=== PATIENT | female | born 1945 | race Caucasian/White ===

== ENCOUNTER → 2016-09-15 09:30 | Outpatient (CLI) | payer MEDICARE, OTHER ==
[2015-05-15 06:31] VITALS: BMI 25.1
[~2016-09-15 09:30] MED LIST: CELEXA20 MG PO; COREG6.25 MG PO; HYZAAR 50-12.51 TAB PO; LOPRESSOR HCT 11 TAB PO; NORVASC5 MG PO; POTASSIUM99 M1 PO; PROZAC40 MG PO
== END | disposition home or self-care (01) ==
LOC: D.CT 09:30
DX: R06.00 Dyspnea, unspecified (principal)

== ENCOUNTER → 2016-12-06 11:57 | Outpatient (CLI) | payer MEDICARE, OTHER ==
[2015-05-15 06:31] VITALS: BMI 25.1
[~2016-12-06 11:57] MED LIST changes: +EFFEXOR XR75 MG PO; +HYZAAR 100-25 T1 TAB PO; +K-TAB10 MEQ PO
== END | disposition home or self-care (01) ==
LOC: D.LAB 11:57
DX: R19.5 Other fecal abnormalities (principal)

== ENCOUNTER 2016-12-20 08:40 | Day surgery (SDC) | payer MEDICARE, OTHER ==
[~2016-12-20] VITALS: Ht 170.2 cm; Wt 70.5 kg
--- NOTE | ~2016-12-20 | OP ---
PATIENT NAME: HENNA LAM MEDICAL RECORD: [id number] :45 LOCATION:D.OPS ADMISSION DATE: SURGEON: JESSICA THAKKAR MD DATE OF OPERATION: 12/20/2016 PREOPERATIVE DIAGNOSES: 1. Rapid transit time. 2. Fecal occult blood positivity. 3. Chronic diarrhea. POSTOPERATIVE DIAGNOSES: 1. Rapid transit time. 2. Fecal occult blood positivity. 3. Chronic diarrhea. 4. No evidence of colitis or proctitis. 5. No polyps or masses. PROCEDURES: 1. Total colonoscopy to cecum. 2. Random colon and rectal biopsies. 3. Stool cultures. SURGEON: Jessica Thakkar MD STRIPPING CUTTER AND WINDER: None. BLOOD LOSS: Minimal. ANESTHESIA: IV sedation. COMPLICATIONS: None. The reason for the anesthesia staff being present during the procedure includes hypertension as well as anxiety. ENDOSCOPIC COURSE: The patient was conveyed to endoscopy suite electively on 12/20/2016. IV sedation was induced by anesthesia staff. The patient was placed in the Dwyer position. A digital rectal examination was performed. A colonoscope was inserted through the anus. It was easily advanced to the cecum. The prep was excellent. I slowly withdrew the endoscope. A combination of direct imaging and narrow band imaging was utilized. Random colon and rectal biopsies were obtained. These were cold biopsies. Stool cultures were obtained. I dragged the folds. The pullback was greater than a 14-minute pullback. A retroflexed views was obtained in the rectum. I then unretroflexed the scope and removed it under direct vision. I will see the patient in my office in 2-3 weeks. We will review the results of the biopsies at that time. TRANSINT:[id number] Voice Confirmation ID: [id number] DOCUMENT ID: [id number] OPERATIVE REPORT [id number] HENNA LAM JESSICA THAKKAR MD CC: ELIA CLEMENS MD and JAMES ORNELAS MD [phone] DICTATION DATE: 12/20/166 INSTRUCTOR BRIDGE: 12/20/16 180 [facility] 12/20/[address] [address]
--- NOTE | ~2016-12-20 | HP ---
PATIENT: HENNA LAM MEDICAL RECORD: [id number] ACCOUNT: [id number] LOCATION:RUBY : 45 ADMISSION DATE: 12/20/16 HISTORY AND PHYSICAL EXAMINATION CHIEF COMPLAINT: Blood in the stools. HISTORY OF PRESENT ILLNESS: The patient has fecal occult blood in her stools. Also, has chronic diarrhea. Also, has a quick transit time. I am going to plan for colonoscopy as well as random colon and rectal biopsies and stool cultures. The risks, possible complications and alternatives to procedure were explained to the patient. She elects to proceed. She has noted no blood in her stools. She does have lower abdominal pain, which is rather diffuse. She has mild tenderness in the lower abdomen and this is diffuse as well. She has a lower midline scar. I specifically discussed with her the risk of endoscopic perforation. ALLERGIES: No known drug allergies. PHYSICAL EXAMINATION: GENERAL: The patient does not appear acutely ill. She does not appear chronically ill. The entire physical examination was performed in the presence of a female nurse. HEAD: External ears appear normal. EYES: Extraocular movements are intact. NECK: Trachea is midline. CHEST: No intercostal retractions. PULMONARY: Nonlabored, no stridor. ABDOMEN: No peritonitis with movement. EXTREMITIES: No peripheral cyanosis. INTEGUMENT: No rash, no ulcerations. PSYCHIATRIC: Normal affect. NEUROLOGIC: Nonfocal, no lethargy. The patient answers questions appropriately, moves all extremities well. BACK: No thoracic kyphosis. LYMPHATICS: No lymphangitic streaking of the exposed extremities. PAST MEDICAL AND SURGICAL HISTORY: Hypertension, TIAs, gastroesophageal reflux. SOCIAL HISTORY: Nonsmoker. REVIEW OF SYSTEMS: Negative for diabetes or thyroid problems. Negative for renal disease or hepatitis. Negative for myocardial infarction. IMPRESSION: 1. Chronic diarrhea. 2. Quick transit time. 3. Fecal occult blood positivity. PLAN: Colonoscopy, random colon and rectal biopsies and stool cultures. TRANSINT:[id number] Voice Confirmation ID: [id number] DOCUMENT ID: [id number] HISTORY AND PHYSICAL [id number] HENNA LAM ROBERT MD CC: ELIA CLEMENS MD [phone] DICTATION DATE: 12/20/16 1032 HEEL FINISHER: 12/20/16 [address] [place] [address]
[~2016-12-20 08:40] MED LIST changes: -EFFEXOR XR75 MG PO; -HYZAAR 100-25 T1 TAB PO; -K-TAB10 MEQ PO
[2016-12-20 09:34] LABS: HEMATOCRIT 42.2 % (36.0-48.0); HEMOGLOBIN 14.6 g/dL (12-16); MCH 29.1 pg (26.0-34.0); MCHC 34.6 g/dL (31.0-37.0); MCV 84.1 fL (80.0-100.0); MEAN PLATELET VOLUME 9.8 fL (7.4-10.4); RBC 5.02 10x6/uL (4.00-5.40); RDW 13.1 % (11.5-14.5); WBC 4.3 10x3/uL (4.8-10.8)
[2016-12-20] MEDS ORDERED: HYZAAR 100-25 T1 TAB PO (09:47)
[2016-12-20] MEDS ORDERED: EFFEXOR XR75 MG PO (09:47)
[2016-12-20] MEDS ORDERED: K-TAB10 MEQ PO (09:49)
[2016-12-20 09:57] VITALS: BP 117/80; Ht 170.2 cm; Wt 70.5 kg
--- NOTE | 2016-12-20 12:20 | NUR ---
1125- VOIDED WITHOUT DIFFICULTY 1130- TOLERATED FULL LIQUIDS 1200- IV D/C'D, PT TOLERATED. CATHETER INTACT 1215- DISCHARGE INSTRUCTIONS COMPLETED, PT VERBALIZED UNDERSTANDING. PAPERWORK SIGNED. 1220- PT DISCHARGED VIA WHEELCHAIR WITH .
== END 2016-12-20 12:20 | disposition home or self-care (01) ==
LOC: D.OPS 08:40
PROVIDERS: Anesthesiology; Surgery
DX: R10.9 Unspecified abdominal pain (principal); K52.9 Noninfective gastroenteritis and colitis, unspecified; I10 Essential (primary) hypertension; K21.9 Gastro-esophageal reflux disease without esophagitis

== ENCOUNTER → 2017-03-23 07:19 | Outpatient (CLI) | payer MEDICARE, OTHER ==
[2016-12-20 09:57] VITALS: BMI 24.3
[~2017-03-23 07:19] MED LIST changes: +EFFEXOR XR75 MG PO; +HYZAAR 100-25 T1 TAB PO; +K-TAB10 MEQ PO
== END | disposition home or self-care (01) ==
LOC: D.RT 07:19
DX: D86.0 Sarcoidosis of lung (principal)

== ENCOUNTER → 2017-04-03 14:36 | Outpatient (CLI) | payer MEDICARE, OTHER ==
[2016-12-20 09:57] VITALS: BMI 24.3
== END | disposition home or self-care (01) ==
LOC: D.MRI 14:36
DX: R51 Headache (principal)

== ENCOUNTER → 2017-06-27 09:39 | Outpatient (CLI) | payer MEDICARE, OTHER ==
[2016-12-20 09:57] VITALS: BMI 24.3
== END | disposition home or self-care (01) ==
LOC: D.RT 09:39
DX: D86.0 Sarcoidosis of lung (principal); R59.0 Localized enlarged lymph nodes

== ENCOUNTER → 2017-10-06 13:26 | Outpatient (CLI) | payer MEDICARE, OTHER ==
[2016-12-20 09:57] VITALS: BMI 24.3
== END | disposition home or self-care (01) ==
LOC: D.CT 10-05 16:00
DX: R41.3 Other amnesia (principal); I77.9 Disorder of arteries and arterioles, unspecified; I63.50 Cerebral infarction due to unspecified occlusion or stenosis of unspecified cerebral artery

== ENCOUNTER → 2017-11-21 12:13 | Outpatient (CLI) | payer MEDICARE, OTHER ==
[2016-12-20 09:57] VITALS: BMI 24.3
== END | disposition home or self-care (01) ==
LOC: D.RAD 12:13
DX: J32.9 Chronic sinusitis, unspecified (principal)

== ENCOUNTER 2018-05-11 11:11 | Emergency (ER) | payer MEDICARE, OTHER ==
[~2018-05-11] VITALS: Ht 170.2 cm; Wt 72.7 kg
[2018-05-11 11:13] VITALS: BP 146/89; Ht 170.2 cm; Wt 72.7 kg
[2018-05-11] MEDS ORDERED: OMEPRAZOLE20 M1 PO (11:16)
[2018-05-11 11:43] LABS: BASOPHILS 0.2 % (0-2); EOSINOPHILS 0.5 % (0-7); HEMATOCRIT 40.5 % (36.0-48.0); HEMOGLOBIN 13.8 g/dL (12-16); IMMATURE GRANULOCYTES 0.2 % (0-5); LYMPHOCYTES 11.2 % (15-50); MCH 29.1 pg (26.0-34.0); MCHC 34.1 g/dL (31.0-37.0); MCV 85.4 fL (80.0-100.0); MEAN PLATELET VOLUME 10.5 fL (7.4-10.4); MONOCYTES 4.4 % (2-11); NEUTROPHILS 83.5 % (40-80); PLATELET COUNT 226 10x3/uL (130-400); RBC 4.74 10x6/uL (4.00-5.40); RDW 13.4 % (11.5-14.5); WBC 5.6 10x3/uL (4.8-10.8)
[2018-05-11 11:59] LABS: APPEARANCE CLOUDY (CLEAR); BILIRUBIN NEGATIVE (NEGATIVE); COLOR DK YELLOW (YELLOW); GLUCOSE NEGATIVE (NEGATIVE); KETONE NEGATIVE (NEGATIVE); NITRITE NEGATIVE (NEGATIVE); PROTEIN 1+ mg/dL (NEGATIVE); RED CELLS - URINE >50 /hpf (0-5); SPECIFIC GRAVITY 1.015 (1.005-1.020); UROBILINOGEN NORMAL (NORMAL); WHITE CELLS - URINE 0-5 /hpf (0-5)
[2018-05-11 12:00] LABS: INR 0.99 (0.85-1.17); PROTIME 12.7 SECONDS (11.6-15.0)
[2018-05-11 12:00] LABS: BACTERIA MODERATE /hpf (NONE SEEN); EPITHELIAL CELLS 0-5 /hpf (0-5); MUCUS <1+ /lpf (NONE SEEN)
[2018-05-11 12:06] LABS: ALBUMIN 4.2 g/dL (3.4-5.0); ALKALINE PHOSPHATASE 89 U/L (46-116); ALT (SGPT) 35 U/L (10-68); BILIRUBIN - TOTAL 0.63 mg/dL (0.2-1.3); CALC OSMOLALITY 278 mosm/kg (275-300); CALCIUM 8.8 mg/dL (8.5-10.1); CARBON DIOXIDE 23.2 mmol/L (21.0-32.0); CHLORIDE - SERUM 105 mmol/L (98-107); GLUCOSE 109 mg/dL (74-106); POTASSIUM - SERUM 3.7 mmol/L (3.5-5.1); PROTEIN - SERUM 7.5 g/dL (6.4-8.2); SODIUM 139 mmol/L (136-145); UREA NITROGEN 12 mg/dL (7-18); eGFR NON AFRICAN AMERICAN 58 mL/min (90-120)
[2018-05-11 12:17] LABS: CKMB 1.1 U/L (0.0-3.6); CREATINE KINASE 101 UL (21-215); PRO BNP 158 pg/mL (0-125); TROPONIN-I < 0.017 ng/mL (0.000-0.060)
== END 2018-05-11 12:53 | disposition home or self-care (01) ==
LOC: D.ER 11:11
PROVIDERS: Family Medicine
DX: H54.61 Unqualified visual loss, right eye, normal vision left eye (principal); R11.2 Nausea with vomiting, unspecified; Z86.73 Personal history of transient ischemic attack (TIA), and cerebral infarction without residual deficits; I10 Essential (primary) hypertension

== ENCOUNTER → 2018-05-17 10:43 | Outpatient (CLI) | payer MEDICARE, OTHER ==
[2018-05-11 11:13] VITALS: BMI 25.1
[~2018-05-17 10:43] MED LIST changes: +OMEPRAZOLE20 M1 PO
== END | disposition home or self-care (01) ==
LOC: D.MRI 10:43
DX: H53.461 Homonymous bilateral field defects, right side (principal)

== ENCOUNTER → 2018-05-31 08:38 | Outpatient (CLI) | payer MEDICARE, OTHER ==
[2018-05-11 11:13] VITALS: BMI 25.1
[2018-05-31 11:59] LABS: GLUCOSE - CSF 60 MG/DL (40-75); PROTEIN - CSF 48 MG/DL (12-60)
[2018-05-31 14:59] LABS: APPEARANCE - CSF COLORLESS; RBC - CSF 5 cmm (0-0)
[2018-05-31 15:00] LABS: LYMPH - CSF 72 % (40-80); MONO - CSF 16 % (15-45); NEUT - CSF 12 % (0-6)
== END | disposition home or self-care (01) ==
LOC: D.RAD 08:38
PROVIDERS: Internal Medicine Medical Oncology
DX: C79.31 Secondary malignant neoplasm of brain (principal)

== ENCOUNTER → 2018-06-04 08:56 | Outpatient (CLI) | payer MEDICARE, OTHER ==
[2018-05-11 11:13] VITALS: BMI 25.1
== END | disposition home or self-care (01) ==
LOC: D.CT 08:56
DX: C79.31 Secondary malignant neoplasm of brain (principal)

== ENCOUNTER → 2018-06-18 14:03 | Outpatient (CLI) | payer MEDICARE, OTHER ==
[2018-05-11 11:13] VITALS: BMI 25.1
[~2018-06-18 14:03] MED LIST changes: +DECADRON4 MG PO; +DIFLUCAN100 MG PO; +Nystatin Oral Susp [ PO; +PEPCID PO
== END | disposition home or self-care (01) ==
LOC: D.MRI 14:03
DX: C71.9 Malignant neoplasm of brain, unspecified (principal)

== ENCOUNTER 2018-07-04 16:36 | Inpatient (IN) | payer MEDICARE, OTHER ==
[~2018-07-04] VITALS: Ht 170.2 cm; Wt 69.9 kg
--- NOTE | ~2018-07-04 | MORECARE ---
CASE MANAGEMENT DISCHARGE SUMMARY PATIENT: HENNA LAM KAYLAH UNIT: [id number] ADM DATE: 07/04/18 AGE: 73 : 45 SEX: F ROOM/BED: D.220 AUTHOR: ABIDA PUCKETT PHYSICIAN: REFERRING PHYSICIAN: FOX ZAFAR MD DATE OF SERVICE: 07/06/18 Discharge Plan Patient Name: HENNA LAM Facility: [facility]:[place] : 1945 Planned Disposition: Home Anticipated Discharge Date: Discharge Date: Expected LOS: Initial Reviewer: [email or web address] Initial Review Date: 07/04/2018 Generated: 07/06/18 12:58 pm Comments DCP- Discharge Planning Updated by [email or web address]: Karolina Rivera on 07/06/18 10:[address] Patient Name: HENNA LAM Encounter No: [id number] : 1945 Primary Insurance: MEDICARE A & B Anticipated DC Date: Planned Disposition: Home External Planned Provider: : DCP follow-up note: Patient and family in agreement with discharge plan. No changes to plan. CM did order a walker from [facility], they will deliver to the hospital. Case management will follow and assist as needed. Karolina Rivera DCP- Discharge Planning Updated by [email or web address]: Karolina Rivera on 07/05/18 3:[address] Patient Name: HENNA LAM Admission Status: ER Accout number: [id number] Admission Date: 07-04-2018 : 1945 Admission Diagnosis: Attending: FOX ZAFAR Current LOS: 1 Anticipated DC Date: Planned Disposition: Home Primary Insurance: MEDICARE A & B Discharge Planning Comments: CM met with patient to assess discharge planning needs. Patient lives independently with her where she plans to return at discharge. She does not use any DME, but is asking for a walker at discharge. She states that she is independent with her care and does not want home health. CM will continue to follow and assist with DC planning. Chemical Operations [employer] Training: Karolina Rivera DCPIA - Discharge Planning Initial Assessment Updated by [email or web address]: Karolina Rivera on 07/05/18 4:28 pm * Is the patient Alert and Oriented? Yes * How many steps to enter\exit or inside your home? * PCP CLEMENS * Pharmacy [facility] * Preadmission Environment Home with Family * ADLs Independent * Equipment None * List name and contact numbers for known caregivers / representatives who currently or will assist patient after discharge: ANTONELLA () [phone] * Verbal permission to speak to the caregivers and representatives has been obtained from the patient. Yes * Community resources currently utilized None * Additional services required to return to the preadmission environment? No * Can the patient safely return to the preadmission environment? Yes * Has this patient been hospitalized within the prior 30 days at any hospital? No Last DP export: 07/06/18 10:50 Patient Name: HENNA LAM Page [id number] at 1158 All edits/amendments must be made on the electronic document DICTATION DATE: 07/06/181157 BLOOD OR BLOOD BANK TECHNICIAN: DEMETRA 07/06/181157 RPT#: [id number] DC DATE: STATUS: ADM IN [facility] [address] [place] [address] END OF REPORT
--- NOTE | ~2018-07-04 | MORECARE ---
CASE MANAGEMENT DISCHARGE SUMMARY PATIENT: HENNA LAM KAYLAH UNIT: [id number] ADM DATE: 07/04/18 AGE: 73 : 45 SEX: F ROOM/BED: D.2200 AUTHOR: ABIDA PUCKETT PHYSICIAN: REFERRING PHYSICIAN: FOX ZAFAR MD DATE OF SERVICE: 07/09/18 Discharge Plan Patient Name: HENNA LAM Facility: [facility]:[place] : 1945 Planned Disposition: Home Anticipated Discharge Date: Discharge Date: 07/06/2018 Expected LOS: 0 Initial Reviewer: [email or web address] Initial Review Date: 07/04/2018 Generated: 07/09/18 11:15 am Comments DCP- Discharge Planning Updated by [email or web address]: Karolina Rivera on 07/06/18 10:[address] Patient Name: HENNA LAM Encounter No: [id number] : 1945 Primary Insurance: MEDICARE A & B Anticipated DC Date: Planned Disposition: Home External Planned Provider: : DCP follow-up note: Patient and family in agreement with discharge plan. No changes to plan. CM did order a walker from [facility], they will deliver to the hospital. Case management will follow and assist as needed. Karolina Rivera DCP- Discharge Planning Updated by [email or web address]: Karolina Rivera on 07/05/18 3:[address] Patient Name: HENNA LAM Admission Status: ER Accout number: [id number] Admission Date: 07-04-2018 : 1945 Admission Diagnosis: Attending: FOX ZAFAR Current LOS: 1 Anticipated DC Date: Planned Disposition: Home Primary Insurance: MEDICARE A & B Discharge Planning Comments: CM met with patient to assess discharge planning needs. Patient lives independently with her where she plans to return at discharge. She does not use any DME, but is asking for a walker at discharge. She states that she is independent with her care and does not want home health. CM will continue to follow and assist with DC planning. Maintainer Plant: Karolina Rivera DCPIA - Discharge Planning Initial Assessment Updated by [email or web address]: Karolina Rivera on 07/05/18 4:28 pm * Is the patient Alert and Oriented? Yes * How many steps to enter\exit or inside your home? * PCP CLEMENS * Pharmacy [facility] [address] * Preadmission Environment Home with Family * ADLs Independent * Equipment None * List name and contact numbers for known caregivers / representatives who currently or will assist patient after discharge: ANTONELLA () [phone] * Verbal permission to speak to the caregivers and representatives has been obtained from the patient. Yes * Community resources currently utilized None * Additional services required to return to the preadmission environment? No * Can the patient safely return to the preadmission environment? Yes * Has this patient been hospitalized within the prior 30 days at any hospital? No Last DP export: 07/06/18 10:58 Patient Name: HENNA LAM Page 05959 at 1015 All edits/amendments must be made on the electronic document DICTATION DATE: 07/09/18 1014 VIDEO NETWORK ENGINEER: DEMETRA 07/09/18 1014 RPT#: [id number] DC DATE:07/06/18 STATUS: DIS IN [facility] [address] [place] [address] END OF REPORT
--- NOTE | ~2018-07-04 | MORECARE ---
CASE MANAGEMENT DISCHARGE SUMMARY PATIENT: HENNA LAM KAYLAH UNIT: [id number] ADM DATE: 07/04/18 AGE: 73 : 45 SEX: F ROOM/BED: D.2204 AUTHOR: LAVERNDOC PHYSICIAN: REFERRING PHYSICIAN: FOX ZAFAR MD DATE OF SERVICE: 07/05/18 Discharge Plan Patient Name: HENNA LAM Facility: [facility]:[place] : 1945 Planned Disposition: Home Anticipated Discharge Date: Discharge Date: Expected LOS: Initial Reviewer: [email or web address] Initial Review Date: 07/04/2018 Generated: 07/05/18 5:30 pm Comments DCP- Discharge Planning Updated by [email or web address]: Karolina Rivera on 07/05/18 3:[address] Patient Name: HENNA LAM Admission Status: ER Accout number: [id number] Admission Date: 07-04-2018 : 1945 Admission Diagnosis: Attending: FOX ZAFAR Current LOS: 1 Anticipated DC Date: Planned Disposition: Home Primary Insurance: MEDICARE A & B Discharge Planning Comments: CM met with patient to assess discharge planning needs. Patient lives independently with her where she plans to return at discharge. She does not use any DME, but is asking for a walker at discharge. She states that she is independent with her care and does not want home health. CM will continue to follow and assist with DC planning. Tanker Driver: Karolina Rivera DCPIA - Discharge Planning Initial Assessment Updated by [email or web address]: Karolina Rivera on 07/05/18 4:28 pm * Is the patient Alert and Oriented? Yes * How many steps to enter\exit or inside your home? * PCP CLEMENS * Pharmacy [facility] [address] * Preadmission Environment Home with Family * ADLs Independent * Equipment None * List name and contact numbers for known caregivers / representatives who currently or will assist patient after discharge: ANTONELLA () [phone] * Verbal permission to speak to the caregivers and representatives has been obtained from the patient. Yes * Community resources currently utilized None * Additional services required to return to the preadmission environment? No * Can the patient safely return to the preadmission environment? Yes * Has this patient been hospitalized within the prior 30 days at any hospital? No Patient Name: HENNA LAM Page 73575 at 1631 All edits/amendments must be made on the electronic document DICTATION DATE: 07/05/181629 GLOBAL MARKETING COORDINATOR: DEMETRA 07/05/181629 RPT#: [id number] DC DATE: STATUS: ADM IN [facility] [address] [place] [address] END OF REPORT
--- NOTE | ~2018-07-04 | MORECARE ---
CASE MANAGEMENT DISCHARGE SUMMARY PATIENT: HENNA LAM KAYLAH UNIT: [id number] ADM DATE: 07/04/18 AGE: 73 : 45 SEX: F ROOM/BED: D.2203 AUTHOR: LAVERNDOC PHYSICIAN: REFERRING PHYSICIAN: FOX ZAFAR MD DATE OF SERVICE: 07/06/18 Discharge Plan Patient Name: HENNA LAM Facility: [facility]:[place] : 1945 Planned Disposition: Home Anticipated Discharge Date: Discharge Date: Expected LOS: Initial Reviewer: [email or web address] Initial Review Date: 07/04/2018 Generated: 07/06/18 12:50 pm Comments DCP- Discharge Planning Updated by [email or web address]: Karolina Rivera on 07/05/18 3:[address] Patient Name: HENNA LAM Admission Status: ER Accout number: [id number] Admission Date: 07-04-2018 : 1945 Admission Diagnosis: Attending: FOX ZAFAR Current LOS: 1 Anticipated DC Date: Planned Disposition: Home Primary Insurance: MEDICARE A & B Discharge Planning Comments: CM met with patient to assess discharge planning needs. Patient lives independently with her where she plans to return at discharge. She does not use any DME, but is asking for a walker at discharge. She states that she is independent with her care and does not want home health. CM will continue to follow and assist with DC planning. Armature Bander: Karolina Rivera DCPIA - Discharge Planning Initial Assessment Updated by [email or web address]: Karolina Rivera on 07/05/18 4:28 pm * Is the patient Alert and Oriented? Yes * How many steps to enter\exit or inside your home? * PCP CLEMENS * Pharmacy [facility] [address] * Preadmission Environment Home with Family * ADLs Independent * Equipment None * List name and contact numbers for known caregivers / representatives who currently or will assist patient after discharge: ANTONELLA () [phone] * Verbal permission to speak to the caregivers and representatives has been obtained from the patient. Yes * Community resources currently utilized None * Additional services required to return to the preadmission environment? No * Can the patient safely return to the preadmission environment? Yes * Has this patient been hospitalized within the prior 30 days at any hospital? No External Providers External Provider: [facility] Next Contact Date: Service Request Date: Service Type: Resolution: Reviewer: Comments: Last DP export: 07/05/18 3:30 Patient Name: HENNA LAM Page [phone] at 1150 All edits/amendments must be made on the electronic document DICTATION DATE: 07/06/18 115 MEDIA THEORIST AND AUTHOR OF: DEMETRA 07/06/18 1150 RPT#: [id number] DC DATE: STATUS: ADM IN [facility] [address] [place] [address] END OF REPORT
[~2018-07-04 16:36] MED LIST changes: -DECADRON4 MG PO; -DIFLUCAN100 MG PO; -Nystatin Oral Susp [ PO; -PEPCID PO
[2018-07-04] MEDS ORDERED: DECADRON4 MG PO (17:38)
[2018-07-04 18:49] LABS: BASOPHILS 0.2 % (0-2); EOSINOPHILS 0 % (0-7); HEMATOCRIT 41.8 % (36.0-48.0); HEMOGLOBIN 15.3 g/dL (12-16); IMMATURE GRANULOCYTES 2.2 % (0-5); LYMPHOCYTES 10.7 % (15-50); MCH 30.4 pg (26.0-34.0); MCHC 36.6 g/dL (31.0-37.0); MCV 83.1 fL (80.0-100.0); MEAN PLATELET VOLUME 10.2 fL (7.4-10.4); MONOCYTES 7.8 % (2-11); NEUTROPHILS 79.1 % (40-80); RBC 5.03 10x6/uL (4.00-5.40); WBC 5.8 10x3/uL (4.8-10.8)
[2018-07-04 18:51] LABS: PLATELET COUNT 121 10x3/uL (130-400)
[2018-07-04 19:19] LABS: ALBUMIN 3.3 g/dL (3.4-5.0); ANION GAP 15.6 mmol/L (8-16); BILIRUBIN - TOTAL 0.88 mg/dL (0.2-1.3); CALCIUM 8.7 mg/dL (8.5-10.1); CARBON DIOXIDE 24.8 mmol/L (21.0-32.0); CREATININE - SERUM 0.9 mg/dL (0.6-1.3); MAGNESIUM - SERUM 2.3 mg/dL (1.8-2.4); POTASSIUM - SERUM 4.4 mmol/L (3.5-5.1); PROTEIN - SERUM 6.6 g/dL (6.4-8.2)
[2018-07-04 20:49] VITALS: BP 164/87
[2018-07-05 03:22] VITALS: BP 164/87; BMI 24.1
[2018-07-05 03:36] VITALS: BP 131/69
[2018-07-05 05:56] LABS: BASOPHILS 0.2 % (0-2); EOSINOPHILS 0 % (0-7); HEMATOCRIT 38.7 % (36.0-48.0); HEMOGLOBIN 13.4 g/dL (12-16); IMMATURE GRANULOCYTES 1.2 % (0-5); LYMPHOCYTES 17.8 % (15-50); MCH 29.1 pg (26.0-34.0); MCHC 34.6 g/dL (31.0-37.0); MCV 83.9 fL (80.0-100.0); MEAN PLATELET VOLUME 9.8 fL (7.4-10.4); MONOCYTES 7.3 % (2-11); NEUTROPHILS 73.5 % (40-80); PLATELET COUNT 105 10x3/uL (130-400); RBC 4.61 10x6/uL (4.00-5.40); RDW 14.1 % (11.5-14.5); WBC 5.1 10x3/uL (4.8-10.8)
[2018-07-05 06:16] LABS: APTT 20.3 SECONDS (22.8-39.4); INR 0.99 (0.85-1.17); PROTIME 12.7 SECONDS (11.6-15.0)
[2018-07-05 06:29] LABS: ALBUMIN 2.8 g/dL (3.4-5.0); ANION GAP 15.4 mmol/L (8-16); BILIRUBIN - TOTAL 0.98 mg/dL (0.2-1.3); CALCIUM 8.1 mg/dL (8.5-10.1); CARBON DIOXIDE 20.8 mmol/L (21.0-32.0); CREATININE - SERUM 0.8 mg/dL (0.6-1.3); POTASSIUM - SERUM 3.2 mmol/L (3.5-5.1); PROTEIN - SERUM 5.6 g/dL (6.4-8.2)
[2018-07-05 08:49] VITALS: BP 121/79
[2018-07-05 12:34] VITALS: Ht 170.2 cm; Wt 69.9 kg
[2018-07-05 16:45] VITALS: BP 140/86
[2018-07-05 21:05] VITALS: BP 135/78
[2018-07-06 04:35] VITALS: BP 133/79
[2018-07-06 04:42] LABS: BASOPHILS 0.2 % (0-2); EOSINOPHILS 0 % (0-7); HEMOGLOBIN 14.4 g/dL (12-16); IMMATURE GRANULOCYTES 1.6 % (0-5); LYMPHOCYTES 8.7 % (15-50); MCH 29.1 pg (26.0-34.0); MCHC 34.3 g/dL (31.0-37.0); MCV 84.8 fL (80.0-100.0); MEAN PLATELET VOLUME 10.3 fL (7.4-10.4); MONOCYTES 3.7 % (2-11); NEUTROPHILS 85.8 % (40-80); PLATELET COUNT 103 10x3/uL (130-400); RBC 4.95 10x6/uL (4.00-5.40); RDW 14.1 % (11.5-14.5); WBC 5.2 10x3/uL (4.8-10.8)
[2018-07-06 04:50] LABS: ANION GAP 13.9 mmol/L (8-16); CREATININE - SERUM 0.9 mg/dL (0.6-1.3)
[2018-07-06 04:55] LABS: POTASSIUM - SERUM 3.9 mmol/L (3.5-5.1)
[2018-07-06 08:21] VITALS: BP 131/83
[2018-07-06] MEDS ORDERED: DIFLUCAN100 MG PO (11:35)
[2018-07-06] MEDS ORDERED: Nystatin Oral Susp [ PO ×2 (11:59→14:26)
[2018-07-06] MEDS ORDERED: PEPCID PO (12:01)
[2018-07-06 12:36] VITALS: BP 137/87
== END 2018-07-06 15:27 | disposition home or self-care (01) | DRG 392 ==
LOC: D.ER 16:36 → D.MS 19:14 → D.EDHOLD 19:14 → D.MS 19:50
PROVIDERS: Emergency Medicine; Internal Medicine Gastroenterology; Internal Medicine Nephrology
PROC: 0DB78ZX Excision of Stomach, Pylorus, Via Natural or Artificial Opening Endoscopic, Diagnostic (ICD-10-PCS; 2018-07-05)
PROC: 0DB38ZX Excision of Lower Esophagus, Via Natural or Artificial Opening Endoscopic, Diagnostic (ICD-10-PCS; principal; 2018-07-05 16:00)
DX: K22.2 Esophageal obstruction (principal); B37.81 Candidal esophagitis; R13.10 Dysphagia, unspecified; I10 Essential (primary) hypertension; D86.9 Sarcoidosis, unspecified; E87.6 Hypokalemia; D69.6 Thrombocytopenia, unspecified

== ENCOUNTER → 2018-07-09 08:40 | Outpatient (CLI) | payer MEDICARE, OTHER ==
[2018-07-05 12:34] VITALS: BMI 24.1
[~2018-07-09 08:40] MED LIST changes: +DECADRON4 MG PO; +DIFLUCAN100 MG PO; +Nystatin Oral Susp [ PO; +PEPCID PO
== END | disposition home or self-care (01) ==
LOC: D.MRI 08:40
DX: D86.9 Sarcoidosis, unspecified (principal)

== ENCOUNTER → 2018-08-27 09:07 | Outpatient (CLI) | payer MEDICARE, OTHER ==
[2018-07-05 12:34] VITALS: BMI 24.1
== END | disposition home or self-care (01) ==
LOC: D.MRI 09:07
DX: M25.561 Pain in right knee (principal)

== ENCOUNTER → 2018-08-28 07:31 | Outpatient (CLI) | payer MEDICARE, OTHER ==
[2018-07-05 12:34] VITALS: BMI 24.1
== END | disposition home or self-care (01) ==
LOC: D.RT 08-23 08:00
DX: D86.0 Sarcoidosis of lung (principal)

== ENCOUNTER → 2018-09-17 07:47 | Outpatient (CLI) | payer MEDICARE, OTHER ==
[2018-07-05 12:34] VITALS: BMI 24.1
== END | disposition home or self-care (01) ==
LOC: D.MRI 07:47
DX: D86.9 Sarcoidosis, unspecified (principal)

== ENCOUNTER → 2018-12-28 07:27 | Outpatient (CLI) | payer MEDICARE, OTHER ==
[2018-07-05 12:34] VITALS: BMI 24.1
[2018-12-28 08:42] LABS: ANION GAP 13.5 mmol/L (8-16); CALCIUM 8.9 mg/dL (8.5-10.1); CARBON DIOXIDE 27.7 mmol/L (21.0-32.0); POTASSIUM - SERUM 3.2 mmol/L (3.5-5.1)
== END | disposition home or self-care (01) ==
LOC: D.RT 07:27
PROVIDERS: ATTEND Internal Medicine Pulmonary Disease
DX: D86.9 Sarcoidosis, unspecified (principal)

== ENCOUNTER → 2019-06-17 08:05 | Outpatient (CLI) | payer MEDICARE, OTHER ==
[2018-07-05 12:34] VITALS: BMI 24.1
== END | disposition home or self-care (01) ==
LOC: D.CT 08:05 → D.RT 10:00
PROVIDERS: ATTEND Internal Medicine Pulmonary Disease
DX: D86.0 Sarcoidosis of lung (principal)

== ENCOUNTER → 2019-10-08 13:10 | Outpatient (CLI) | payer MEDICARE, OTHER ==
[2018-07-05 12:34] VITALS: BMI 24.1
== END | disposition home or self-care (01) ==
LOC: D.US 13:10
PROVIDERS: ATTEND Nurse Practitioner
DX: R94.6 Abnormal results of thyroid function studies (principal)

== ENCOUNTER → 2019-10-09 10:18 | Outpatient (CLI) | payer MEDICARE, OTHER ==
[2018-07-05 12:34] VITALS: BMI 24.1
== END | disposition home or self-care (01) ==
LOC: D.MRI 10:18
PROVIDERS: ATTEND Internal Medicine Medical Oncology
DX: C79.31 Secondary malignant neoplasm of brain (principal); D86.81 Sarcoid meningitis

== ENCOUNTER → 2020-01-28 13:07 | Outpatient (CLI) | payer MEDICARE, OTHER ==
[2018-07-05 12:34] VITALS: BMI 24.1
== END | disposition home or self-care (01) ==
LOC: D.LABREF 13:07
PROVIDERS: ATTEND Internal Medicine Pulmonary Disease
DX: Z11.59 Encounter for screening for other viral diseases (principal)

== ENCOUNTER → 2020-01-29 10:10 | Outpatient (CLI) | payer MEDICARE, OTHER ==
[2018-07-05 12:34] VITALS: BMI 24.1
== END | disposition home or self-care (01) ==
LOC: D.RT 12-19 10:00 → D.CT 12-19 10:30 → D.RT 10:10
PROVIDERS: ATTEND Internal Medicine Pulmonary Disease
DX: D86.0 Sarcoidosis of lung (principal)

== ENCOUNTER → 2021-02-17 13:40 | Outpatient (CLI) | payer MEDICARE, OTHER ==
[2018-07-05 12:34] VITALS: BMI 24.1
== END | disposition home or self-care (01) ==
LOC: D.LAB 13:40
PROVIDERS: ATTEND Internal Medicine Pulmonary Disease
DX: J45.909 Unspecified asthma, uncomplicated (principal)

== ENCOUNTER → 2021-02-22 13:28 | Outpatient (CLI) | payer MEDICARE, OTHER ==
[2018-07-05 12:34] VITALS: BMI 24.1
== END | disposition home or self-care (01) ==
LOC: D.RT 13:28
PROVIDERS: ATTEND Internal Medicine Pulmonary Disease
DX: J45.909 Unspecified asthma, uncomplicated (principal)